=== PATIENT | female | born 1980 | race Caucasian/White ===

== ENCOUNTER 2017-05-14 20:35 | Observation (INO) | payer BC ==
[~2017-05-14 20:35] MED LIST: CYCL10TA PO; DEXAMETHASONE SOD PHOS 4 MG/ML VIAL IV ONE; KETOROLAC TROMETHAMINE 30 MG/ML (IVP) VIAL IV PUSH ONE; LIDOCAINE HCL 1% PF 5 ML SYRINGE OTHER ONE; NAPR500 PO; ONDANSETRON HCL 4 MG/2 ML VIAL IV ONE; PROPOFOL 200 MG/20 ML AMP IV ONE; ROCURONIUM INJ 50 MG/5 ML SYRINGE IV PUSH ONE
[2017-05-14] MEDS ORDERED: ACETAMINOPHEN 1000 MG/100 ML 100 ML IV ONE (21:21)
[2017-05-14] MEDS ORDERED: SUGAMMADEX SODIUM 200 MG/2 ML VIAL IV PUSH ONE (21:21)
[2017-05-14] MEDS: BUPIVACAINE/EPINEPHRINE 0.25% 50 ML VIAL ONE (21:34)
[2017-05-14] MEDS: SODIUM CHLOR 0.9% 1000 ML INJ 1,000 ML IV SCH (22:22)
--- NOTE | 2017-05-14 22:22 | HHI.PR ---
cc: Raul Ocasio MD Immediate Post Op Note Procedure Date: May 14, 2017 Pre Op Diagnosis: Acute appendicitis Post Op Diagnosis: Same, without perforation Surgeon: Raul Ocasio Clicking Machine Operator(s): Reece Sanchez CFA Procedure: Laparoscopic appendectomy Laparoscopic lysis of adhesions Complications: None Specimen(s) removed: Appendix to pathology Estimated blood loss: 20 ml Anesthesia: General Drains: None IVF (800 ml) Patient to: PACU Patient Condition: Good Date/Time of Procedure: SEE SURGICAL CARE RECORD Raul Ocasio MD May 14, 2017 22:22
[2017-05-14] MEDS ORDERED: MEPERIDINE HCL 25 MG/ML VIAL ONE (22:26)
[2017-05-14] MEDS ORDERED: MIDAZOLAM HCL 2 MG/2 ML VIAL ONE (22:28)
[2017-05-14] MEDS ORDERED: KETO10 PO (22:28)
[2017-05-14] MEDS ORDERED: diphenhydrAMINE HCL 25 MG CAP PO PRN (22:30)
[2017-05-14] MEDS ORDERED: ONDANSETRON HCL 4 MG/2 ML VIAL IV PUSH PRN (22:30)
[2017-05-14] MEDS ORDERED: NALOXONE HCL 0.4 MG/ML AMP IV PUSH PRN ×2 (22:30→23:45)
[2017-05-14] MEDS ORDERED: Post-op Orders (for Pharmacy) XX ONE (22:30)
[2017-05-14] MEDS ORDERED: DO NOT ADM ANY ANTICOAGULANT DRUGS PRN (22:45)
[2017-05-14] MEDS ORDERED: diphenhydrAMINE HCL 50 MG/ML VIAL ONE (22:52)
[2017-05-14] MEDS: MORPHINE SULFATE 2 MG/ML INJ IV PRN (23:14)
[2017-05-14] MEDS ORDERED: ONDANSETRON HCL 4 MG/2 ML VIAL IVP PRN (23:45)
[2017-05-14] MEDS ORDERED: SODIUM CHLORIDE 0.9% FLUSH 10 ML FLUSH IV FLUSH PRN (23:45)
--- NOTE | 2017-05-15 00:14 | MP ---
cc: Raul Ocasio MD DATE OF OPERATION: 05/14/2017 PROCEDURE: Laparoscopic appendectomy, laparoscopic lysis of adhesions. PREOPERATIVE DIAGNOSIS: Acute appendicitis. POSTOPERATIVE DIAGNOSIS: Acute appendicitis without perforation. ANESTHESIA: General endotracheal. SURGEON: Raul Ocasio MD ESTIMATED BLOOD LOSS: 20 mL. FLUIDS: 800 mL crystalloid. COMPLICATIONS: None. DRAINS: None. SPECIMEN: Appendix to pathology. PROCEDURE IN DETAIL: The patient was taken to the operating room and placed on the operating table in the supine position. After an adequate level of general endotracheal anesthesia was achieved, the abdomen was prepped and draped in the usual fashion. Timeout was taken, confirming the correct patient, site, and procedure to be performed. Skin and subcutaneous tissue was infiltrated with local anesthetic and then an incision carried through the umbilicus and carried through the fascia sharply. The peritoneal cavity was directly visualized. A 12 mm balloon trocar was inserted and the balloon inflated. The abdomen was insufflated. The patient was placed in Trendelenburg position. Two 5 mm trocars were then placed, with the first in the right lower quadrant and the second in the suprapubic region. The right lower quadrant trocar was placed first and the Harmonic scalpel was used to take down omental adhesions from the midline anterior abdominal wall. This allowed for the second trocar to be placed without incident. The appendix came into view and was seen to be acutely inflamed. Dissection was carried back to the base of the appendix, and the mesoappendix was divided with the Harmonic scalpel. A 0 PDS endoloop was slipped over the appendix and cinched down at the base. The appendix was divided 1 cm distal to the endoloop. The appendix was placed into an Endo Catch device and removed via the umbilical port while observing via the right lower quadrant 5 mm trocar site. The specimen was passed off the table. The right lower quadrant was revisualized and the appendiceal stump was seen to be clean and dry. The remaining omental adhesions were taken down off the anterior abdominal wall down near the uterus and the ovaries were visualized. A small ovarian cyst was seen on the left. All irrigation as then aspirated from the abdominal cavity. Insufflation was discontinued and the 5 mm trocars were removed under direct vision. A small bleeding point on the right lower quadrant trocar site was controlled with the Harmonic scalpel. After desufflation, the laparoscope and umbilical trocar were removed. The fascia was closed in the umbilicus with 0 Vicryl suture in both a simple interrupted and a [id number] fashion. Then 30 mL of 0.25% Marcaine with epinephrine was injected into the trocar sites. The skin was closed over the trocar sites with 4-0 Vicryl in an interrupted buried fashion. All trocar sites were dressed with Steri-Strips. The patient was extubated and taken back to the recovery room in stable condition. She tolerated the procedure well. MD ANN Pedraza/SIMÓN , 10:58 PM , 12:14 AM
--- NOTE | 2017-05-15 00:23 | MB ---
cc: Raul Ocasio MD DATE OF CONSULT: 05/14/2017 REASON FOR CONSULTATION: Acute appendicitis. HISTORY OF PRESENT ILLNESS: The patient was seen in the [place] [facility] with a 2 day history of nausea, vomiting, diarrhea. The patient underwent CT scan which demonstrates acute appendicitis without perforation. The patient denies any fevers, chest pain, shortness of breath or back pain. PAST MEDICAL HISTORY: The patient has past medical history of depression for which she takes Cymbalta. PAST SURGICAL HISTORY: She has had C-sections x 2 and laparoscopic tubal ligation. SOCIAL HISTORY: She does not drink, smoke or use other substances. ALLERGIES: SHE HAS AN ANAPHYLACTIC REACTION TO CODEINE. SHE IS ABLE TO TAKE MORPHINE. SHE REPORTS SHE USED A MORPHINE PHOTOGRAPHIC DOUBLE AFTER HER C-SECTIONS. NO DIFFICULTY. PHYSICAL EXAMINATION: GENERAL: Reveals a thin female in no acute distress. VITAL SIGNS: Blood pressure 108/60, pulse 72, respirations 18. HEENT: Sclerae anicteric, pupils are reactive. CHEST: Clear to auscultation. CARDIAC: Reveals regular rate and rhythm. ABDOMEN: Soft with tenderness in the right lower quadrant with minimal guarding. There is some suprapubic tenderness as well. EXTREMITIES: Pulses are present. NEUROLOGIC: Nonfocal. LABORATORY DATA: Demonstrate WBC 11.0, platelets 311,000, hemoglobin 12.7. Electrolytes essentially within normal limits with potassium of 3.6, BUN and creatinine [address] scan demonstrates uncomplicated acute appendicitis. ASSESSMENT: Acute appendicitis without perforation. PLAN: Emily was already give in [place]. The patient has arrived in [place] and was seen in the holding area. I have discussed risks of surgery with the patient including but not limited to bleeding, infection, need for drainage, adhesion formation and fistula formation. I have discussed remedies, consequences, alternatives and convalescence. She vocalizes understanding and agrees to proceed. Raul Ocasio MD MAF/rt , 11:01 PM , 12:21 AM
[2017-05-15] MEDS ORDERED: ZOLPIDEM TARTRATE 5 MG TAB PO ONE (01:00)
--- NOTE | 2017-05-15 01:00 | HHI.HP ---
[facility] Service [facility] Primary Care Physician Rodri Adkins MD Admission Diagnosis appendicitis Diagnoses: Chief Complaint: abdominal pain Travel History International Travel<30 Days: No Contact w/Intl Traveler <30 Da: No History of Present Illness 36 y/o female with a history of depression presented to the [facility] the ED with complaints of nausea, vomiting and diarrhea. Abdominal CT was completed and patient was found to have acute appendicitis and was sent to the [facility] for surgery. Patient was seen in postop recovery status post appendectomy. Patient currently denies any pain, nausea or vomiting. She is requesting something to sleep at home she takes [id number] sleeping for insomnia. Review of Systems Except as stated in HPI: all other systems reviewed are Neg Past Family Social History Past Medical History depression Past Surgical History Appendectomy 2 Tubal ligation Reported Medications Reported Meds & Active Scripts Active Ketorolac (Ketorolac Tromethamine) 10 Mg Tab 10 Mg PO Q6HR PRN Allergies: Coded Allergies: codeine (Verified Allergy, Severe, hives, 05/14/17) able to take morphine Active Ordered Medications Current Medications Medications (Trade) Dose Ordered Sig/Gallo Route Start Time Stop Time Status Last Admin Sodium Chloride 1,000 ml @ 100 mls/hr Q10H IV 05/14/17 22:22 05/14/17 22:22 (Toradol Inj) 30 mg Q6H PRN IVP 05/14/17 22:30 05/19/17 22:29 (Morphine Inj) 2 mg Q30M PRN IV 05/14/17 22:45 05/14/17 23:14 (Benadryl) 25 mg Q6H PRN PO 05/14/17 22:30 Miscellaneous Information ALL NURSING DEPARTME... UNSCH PRN .XX 05/14/17 22:45 05/15/17 22:44 (NS Flush) 2 ml UNSCH PRN IV FLUSH 05/14/17 23:45 (NS Flush) 2 ml BID IV FLUSH 05/15/17 09:00 (Zofran Inj) 4 mg Q6H PRN IVP 05/14/17 23:45 (Narcan Inj) 0.4 mg UNSCH PRN IV PUSH 05/14/17 23:45 Family History Dad: Prostate cancer Mom: COPD, fibromyalgia, heart disease, osteoarthritis Social History Tobacco use: Denies Alcohol use: Socially Physical Exam Vital Signs Vital Signs Date Time Temp Pulse Resp B/P (MAP) Pulse Ox O2 Delivery O2 Flow Rate FiO2 05/15/17 00:00 82 17 110/62 (78) 100 Room Air 05/14/17 23:45 89 19 107/68 (81) 100 Room Air 05/14/17 23:30 83 16 111/62 (78) 99 Room Air 05/14/17 23:15 88 18 109/64 (79) 99 Room Air 05/14/17 23:00 92 15 113/61 (78) 99 Room Air 05/14/17 22:45 90 13 112/72 (85) 99 Room Air 05/14/17 22:30 98.4 101 20 100/56 (71) 100 Nasal Cannula 2 05/14/17 20:45 98.2 92 19 124/59 (80) 100 Room Air Physical Exam GENERAL: This is a well-nourished, well-developed patient, in no apparent distress. SKIN: No rashes, ecchymoses or lesions. Cool and dry. HEAD: Atraumatic. Normocephalic. EYES: Pupils equal round and reactive. ENT: Nose without bleeding, purulent drainage or septal hematoma. NECK: Trachea midline. No JVD or lymphadenopathy. CARDIOVASCULAR: Regular rate and rhythm without murmurs, gallops, or rubs. RESPIRATORY: Clear to auscultation. Breath sounds equal bilaterally. No wheezes , rales, or rhonchi. GASTROINTESTINAL: Abdomen soft, tender, nondistended. No hepato-splenomegaly, or palpable masses. MUSCULOSKELETAL: Extremities without clubbing, cyanosis, or edema. NEUROLOGICAL: Awake and alert. Motor and sensory grossly within normal limits. Normal speech. Caprini VTE Risk Assessment Caprini VTE Risk Assessment: No/Low Risk (score <= 1) Caprini Risk Assessment Model Point Value = 1 Point Value = 2 Point Value = 3 Point Value = 5 Age 41-60 Minor surgery BMI > 25 kg/m2 Swollen legs Varicose veins or History of unexplained or recurrent spontaneous Oral contraceptives or hormone replacement Sepsis (< 1 month) Serious lung disease, including pneumonia (< 1 month) Abnormal pulmonary function Acute myocardial infarction Congestive heart failure (< 1 month) History of inflammatory bowel disease Medical patient at bed rest Age 61-74 Arthroscopic surgery Major open surgery (> 45 min) Laparoscopic surgery (> 45 min) Malignancy Confined to bed (> 72 hours) Immobilizing plaster cast Central venous access Age >= 75 History of VTE Family history of VTE Factor V Leiden Prothrombin [id number] Lupus anticoagulant Anticardiolipin antibodies Elevated serum homocysteine Heparin-induced thrombocytopenia Other congenital or acquired thrombophilia Stroke (< 1 month) Elective arthroplasty Hip, pelvis, or leg fracture Acute spinal cord injury (< 1 month) Prophylaxis Regimen Total Risk Factor Score Risk Level Prophylaxis Regimen 0-1 Low Early ambulation 2 Moderate Order ONE of the following: *Sequential Compression Device (SCD) *Heparin 5000 units SQ BID 3-4 Higher Order ONE of the following medications: *Heparin 5000 units SQ TID *Enoxaparin/Lovenox 40 mg SQ daily (WT < 150 kg, CrCl > 30 mL/min) *Enoxaparin/Lovenox 30 mg SQ daily (WT < 150 kg, CrCl > 10-29 mL/min) *Enoxaparin/Lovenox 30 mg SQ BID (WT < 150 kg, CrCl > 30 mL/min) AND/OR *Sequential Compression Device (SCD) 5 or more Highest Order ONE of the following medications: *Heparin 5000 units SQ TID (Preferred with Epidurals) *Enoxaparin/Lovenox 40 mg SQ daily (WT < 150 kg, CrCl > 30 mL/min) *Enoxaparin/Lovenox 30 mg SQ daily (WT < 150 kg, CrCl > 10-29 mL/min) *Enoxaparin/Lovenox 30 mg SQ BID (WT < 150 kg, CrCl > 30 mL/min) AND *Sequential Compression Device (SCD) Assessment and Plan Problem List: (1) Appendicitis ICD Code: K37 - Unspecified appendicitis Status: Acute Assessment and Plan 36 y/o female with a history of depression presented to the [facility] the ED with complaints of nausea, vomiting and diarrhea. Appendicitis, status post appendectomy CT abdomen/pelvis reviewed shows acute appendicitis -Surgery was consulted -Pain management with Toradol IV and IV morphine -IVF for hydration advanced as tolerated DVT prophylaxis: SCDs Discussed Condition With Patient and RN Problem Qualifiers (1) Appendicitis: Qualified Codes: K35.80 - Unspecified acute appendicitis Deonna Feng May 15, 2017 01:00
[2017-05-15] MEDS: KETOROLAC TROMETHAMINE 30 MG/ML (IVP) VIAL IVP PRN ×3 (06:51→22:49)
--- NOTE | 2017-05-15 08:11 | HHI.PR ---
Subjective Subjective Notes Still sore lower abdomen this morning; not ready to go home yet Objective Vitals/I&O Vital Signs Date Time Temp Pulse Resp B/P (MAP) Pulse Ox O2 Delivery O2 Flow Rate FiO2 05/15/17 07:15 98.6 103 15 106/55 (72) 98 Room Air 05/14/17 22:30 2 Lungs: Clear Abdomen: Non-distended, Post-op tenderness (below umbilicus both lower quadrants) A/P Assessment and Plan POD #1 lap appendectomy Start PO tramadol; if tolerated and pain controlled, discharge home. Monitor for itching Raul Ocasio MD May 15, 2017 08:11
[2017-05-15] MEDS ORDERED: TRAM50TA PO (08:12)
[2017-05-15] MEDS: traMADol/ACETAMINOPHEN 37.5/325 1 TAB PO PRN (08:31)
[2017-05-15] MEDS: SODIUM CHLORIDE 0.9% FLUSH 10 ML FLUSH IV FLUSH SCH ×2 (08:55→20:14)
[2017-05-15] MEDS: MORPHINE SULFATE 2 MG/ML INJ IV PRN ×2 (10:08→18:04)
[2017-05-15] MEDS ORDERED: *morphine SULFATE 8 MG/ML PERIprocedure ONLY ONE (10:08)
[2017-05-15 14:00] VITALS: BP 106/59; PULSE 109; RESP 18; TEMP 98.2; O2SAT 97
[2017-05-15 16:00] VITALS: BP 106/54; PULSE 98; RESP 16; TEMP 98.4; O2SAT 98
--- NOTE | 2017-05-15 16:41 | HHI.PR ---
Addendum to Inpatient Note Addendum Reason: Additional Documentation Additional Information The patient was feeling well. She was tolerating a diet. She requested something for sleep. She said her pain was controlled. Continue pain control as needed. Advance diet as tolerated. Continue to ambulate. Hopefully discharge home tomorrow. Raul Frank DO May 15, 2017 16:41
[2017-05-15] MEDS: SODIUM CHLOR 0.9% 1000 ML INJ 1,000 ML IV SCH ×2 (18:04→20:14)
[2017-05-15 19:40] VITALS: PULSE 91
[2017-05-15 20:00] VITALS: BP 111/62; PULSE 90; RESP 16; TEMP 97.8; O2SAT 100
[2017-05-16] VITALS: BP 104/62; PULSE 91; RESP 16; TEMP 97.9; O2SAT 100
[2017-05-16] MEDS: traMADol/ACETAMINOPHEN 37.5/325 1 TAB PO PRN ×4 (00:41→14:02)
[2017-05-16 04:00] VITALS: BP 112/64; PULSE 89; RESP 16; TEMP 97.1; O2SAT 100
[2017-05-16 08:00] VITALS: BP 106/58; PULSE 86; RESP 16; TEMP 97.7; O2SAT 98
[2017-05-16] MEDS: SODIUM CHLORIDE 0.9% FLUSH 10 ML FLUSH IV FLUSH SCH (08:03)
[2017-05-16 12:00] VITALS: BP 99/59; PULSE 83; RESP 16; TEMP 97.7; O2SAT 97
--- NOTE | 2017-05-16 12:25 | HHI.DCPOC ---
Discharge Care Plan Diagnosis: (1) Appendicitis Your Health Problems Are: Incision/Drains Inflammation Goals to Promote Your Health * To prevent worsening of your condition and complications * To maintain your health at the optimal level Directions to Meet Your Goals Take your medications as prescribed Follow your dietary instruction Follow activity as directed Keep your appointments as scheduled Take your immunizations and boosters as scheduled If your symptoms worsen call your PCP, if no PCP go to Urgent Care Center or Emergency Room Smoking is Dangerous to Your Health. Avoid second hand smoke Call the 24-hour hour crisis hotline for domestic abuse at Raul Frank DO May 16, 2017 12:25
--- NOTE | 2017-05-16 12:32 | HHI.PR ---
Subjective Remarks The patient was feeling well. Her was at the bedside. She said she tolerated breakfast. She has not had any nausea. She was looking forward to taking a shower. Discussed with nursing. Objective Vitals Vital Signs Date Time Temp Pulse Resp B/P (MAP) Pulse Ox O2 Delivery O2 Flow Rate FiO2 05/16/17 12:00 97.7 83 16 99/59 (72) 97 05/16/17 10:58 17 05/16/17 08:00 97.7 86 16 106/58 (74) 98 05/16/17 04:00 97.1 89 16 112/64 (80) 100 05/16/17 00:42 20 05/16/17 00:00 97.9 91 16 104/62 (76) 100 05/15/17 20:00 97.8 90 16 111/62 (78) 100 05/15/17 19:40 91 05/15/17 16:00 98.4 98 16 106/54 (71) 98 05/15/17 14:00 98.2 109 18 106/59 (75) 97 I/O 05/15/17 05/15/17 05/15/17 05/16/17 05/16/17 05/16/17 07:00 15:00 23:00 07:00 15:00 23:00 Intake Total 300 ml 450 ml 720 ml 240 ml Output Total 1450 ml 650 ml 300 ml Balance -1150 ml -200 ml 420 ml 240 ml Intake Oral 300 ml 450 ml 720 ml 240 ml Output Urine Total 1450 ml 650 ml 300 ml # Voids 1 # Bowel Movements 0 0 Objective Remarks GENERAL: This is a well-nourished, well-developed patient, in no apparent distress. SKIN: No rashes, ecchymoses or lesions. Cool and dry. HEAD: Atraumatic. Normocephalic. EYES: Pupils equal round and reactive. ENT: Nose without bleeding, purulent drainage or septal hematoma. NECK: Trachea midline. No JVD or lymphadenopathy. CARDIOVASCULAR: Regular rate and rhythm without murmurs, gallops, or rubs. RESPIRATORY: Clear to auscultation. Breath sounds equal bilaterally. No wheezes , rales, or rhonchi. GASTROINTESTINAL: Abdomen soft, slightly tender around incisions, nondistended. No hepato-splenomegaly, or palpable masses. MUSCULOSKELETAL: Extremities without clubbing, cyanosis, or edema. NEUROLOGICAL: Awake and alert. Motor and sensory grossly within normal limits. Normal speech. Procedures Appendectomy Medications and IVs Current Medications Medications (Trade) Dose Ordered Sig/Gallo Route Start Time Stop Time Status Last Admin Sodium Chloride 1,000 ml @ 100 mls/hr Q10H IV 05/14/17 22:22 05/14/17 22:22 (Toradol Inj) 30 mg Q6H PRN IVP 05/14/17 22:30 05/19/17 22:29 05/15/17 22:49 (Morphine Inj) 2 mg Q30M PRN IV 05/14/17 22:45 05/15/17 18:04 (Benadryl) 25 mg Q6H PRN PO 05/14/17 22:30 (NS Flush) 2 ml UNSCH PRN IV FLUSH 05/14/17 23:45 (NS Flush) 2 ml BID IV FLUSH 05/15/17 09:00 05/15/17 20:14 (Zofran Inj) 4 mg Q6H PRN IVP 05/14/17 23:45 (Narcan Inj) 0.4 mg UNSCH PRN IV PUSH 05/14/17 23:45 (Ultracet 37.5-325 Mg) 1 tab Q4H PRN PO 05/15/17 08:15 05/16/17 09:53 A/P Problem List: (1) Appendicitis ICD Code: K37 - Unspecified appendicitis Status: Acute Assessment and Plan 36 y/o female with a history of depression presented to the [place] ED with complaints of nausea, vomiting and diarrhea. Appendicitis CT abdomen/pelvis showed acute appendicitis. Surgery was consulted. S/p appendectomy. - Pain management with Toradol IV and IV morphine. - IVFs. - ADAT. - follow up with surgery as an outpt. Hypotension Mild. May be baseline. - outpt follow-up. DVT prophylaxis: SCDs Discharge Planning D/c home Problem Qualifiers (1) Appendicitis: Qualified Codes: K35.80 - Unspecified acute appendicitis Raul Frank DO May 16, 2017 12:32
--- NOTE | 2017-05-16 13:07 | HHI.PR ---
Subjective Subjective Notes Feeling better; pain controlled Objective Vitals/I&O Vital Signs Date Time Temp Pulse Resp B/P (MAP) Pulse Ox O2 Delivery O2 Flow Rate FiO2 05/16/17 12:00 97.7 83 16 99/59 (72) 97 05/15/17 12:00 Room Air 05/14/17 22:30 2 Cardiovascular: Regular Lungs: Clear Abdomen: Other (lap sites c/d/i; abdomen soft ) Extremities: No edema A/P Assessment and Plan 36 year old female POD2 lap appy -Pain controlled -Tolerating regular diet -DC home today -Follow up May 23 Attending Note - Dr. Ocasio Abdominal discomfort much improved Wounds clean and dry The exam, history, and the medical decision-making described in the above note were completed with the assistance of the mid-level provider. I reviewed and agree with the findings presented. I attest that I had a [id number] encounter with the patient on the same day, and personally performed and documented my assessment and findings in the medical record. Lisa Gonsalves/First Francisco RUFF May 16, 2017 13:07 Raul Ocasio MD May 20, 2017 20:29
[2017-05-16] MEDS: SODIUM CHLOR 0.9% 1000 ML INJ 1,000 ML IV SCH (14:18)
== END 2017-05-16 14:24 | disposition home or self-care (01) ==
LOC: HOR 20:35 → INTOOBSV 20:45 → HPAC 20:45 → N07B 05-15 13:47
PROVIDERS: ADMIT Hospitalist; ATTEND Hospitalist
DX: K35.80 Unspecified acute appendicitis (principal)
CPT/HCPCS: 00840; 44970; 74177; 80053; 81001; 83690; 85025; 87804; 88304; 94150; 96361; 96365; 96374; 96375; 96376; 99284; G0378; J0131; J1100; J1200; J1885; J2175; J2250; J2270; J2405; J2543; J3010; J7030; Q9963; Q9967